=== PATIENT | female | born 1955 | race Caucasian/White ===

== ENCOUNTER → 2019-09-09 | Day surgery (SDC) | payer BC ==
[~2019-09-09] MED LIST: Atropine 0.4 MG/ML SDV ONE; Metoclopramide 10 MG/2 ML SDV IV PRN; Propofol 1,000 MG/100 ML SDV ONE; Sodium Chloride 0.9% 1,000 ML IV SCH; Sodium Chloride 0.9% 10 ML Syringe FLUSH PRN
--- NOTE | 2019-09-09 19:33 | OR ---
DATE OF OPERATION: 09/09/2019 SURGEON: Dragan Marin MD PREOPERATIVE DIAGNOSIS: Screening colonoscopy. POSTOPERATIVE DIAGNOSIS: Screening colonoscopy. PROCEDURE: Colonoscopy. ANESTHESIA: MAC. ESTIMATED BLOOD LOSS: None. COMPLICATIONS: None. INDICATION FOR THE PROCEDURE: The patient is a 63-year-old female, last colonoscopy was approximately 12 years ago. May have had a couple of polyps at that time, otherwise denies any changes in bowel habits. She is here today for a screening colonoscopy. DESCRIPTION OF PROCEDURE: Informed consent was obtained from the patient. The patient was taken to the operating room and placed on table in left lateral decubitus position. Monitored anesthesia care was administered. Digital rectal exam performed and was normal. Colonoscope then advanced through the anus directed toward the cecum. Cecum was reached, identified by appendiceal orifice and ileocecal valve. Colonoscope then slowly withdrawn. She did have a few small diverticula in the sigmoid colon, otherwise unremarkable. No masses. No polyps. No areas of ischemia or inflammation identified. Rectum was also unremarkable. Colonoscope then fully withdrawn. FINDINGS: Sigmoid diverticula, mild. RECOMMENDATIONS: Would recommend repeat screening colonoscopy in 10 years. Would also recommend high-fiber diet and plenty water for the diverticula. AAYUSH/RANJIT /[id number]
== END ==
LOC: LB.SDS 09:14
PROVIDERS: ATTEND Surgery
DX: Z12.11 Encounter for screening for malignant neoplasm of colon (principal); K57.30 Diverticulosis of large intestine without perforation or abscess without bleeding; Z86.010 Personal history of colon polyps
CPT/HCPCS: G0121; J7030